=== PATIENT | male | born 1950 ===

== ENCOUNTER → 2024-01-02 14:36 | Outpatient (BNVA) | payer MEDICARE, OTHER, SELFPAY | PROVIDERS: Visit Provider Urology | DX: D09.0 Carcinoma in situ of bladder (principal); Z98.890 Other specified postprocedural states; Z86.03 Personal history of neoplasm of uncertain behavior | CPT/HCPCS: 99203 ==

== ENCOUNTER → 2024-01-09 08:52 | Outpatient (BNVA) | payer MEDICARE, OTHER, SELFPAY | PROVIDERS: Visit Provider Urology | DX: Z46.6 Encounter for fitting and adjustment of urinary device (principal); D09.0 Carcinoma in situ of bladder | CPT/HCPCS: 51720; 81003; J9201 ==

== ENCOUNTER → 2024-01-19 08:35 | Outpatient (BNVA) | payer MEDICARE, OTHER, SELFPAY | PROVIDERS: Visit Provider Urology | DX: D09.0 Carcinoma in situ of bladder (principal) | CPT/HCPCS: 51720; 81003; J9201 ==

== ENCOUNTER → 2024-02-02 08:23 | Outpatient (BNVA) | payer MEDICARE, OTHER, SELFPAY | PROVIDERS: Visit Provider Urology | DX: D09.0 Carcinoma in situ of bladder (principal) | CPT/HCPCS: 51720; 81003; J9201 ==

== ENCOUNTER → 2024-02-08 09:09 | Outpatient (BNVA) | payer MEDICARE, OTHER, SELFPAY | PROVIDERS: Visit Provider Urology | DX: D09.0 Carcinoma in situ of bladder (principal) | CPT/HCPCS: 51720; 81003; J9201 ==

== ENCOUNTER → 2024-02-16 09:03 | Outpatient (BNVA) | payer MEDICARE, OTHER, SELFPAY | PROVIDERS: Visit Provider Urology | DX: D09.0 Carcinoma in situ of bladder (principal) | CPT/HCPCS: 51720; 81003; J9201 ==

== ENCOUNTER → 2024-02-29 12:23 | Outpatient (BNVA) | payer MEDICARE, OTHER, SELFPAY | PROVIDERS: Visit Provider Nurse Practitioner Gerontology | DX: D09.0 Carcinoma in situ of bladder (principal) | CPT/HCPCS: 51720; 81003; J9201 ==

== ENCOUNTER → 2025-01-27 09:56 | Outpatient (BNVA) | payer MEDICARE, OTHER, SELFPAY | PROVIDERS: Visit Provider Nurse Practitioner Gerontology | DX: D09.0 Carcinoma in situ of bladder (principal); Z98.890 Other specified postprocedural states | CPT/HCPCS: 99214 ==

== ENCOUNTER → 2025-02-18 12:58 | Outpatient (BNVA) | payer MEDICARE, OTHER, SELFPAY | PROVIDERS: Visit Provider Nurse Practitioner Gerontology | DX: D09.0 Carcinoma in situ of bladder (principal) | CPT/HCPCS: 99213 ==

== ENCOUNTER → 2025-02-24 12:45 | Outpatient (BNVA) | payer MEDICARE, OTHER, SELFPAY | PROVIDERS: Visit Provider Nurse Practitioner Gerontology | DX: D09.0 Carcinoma in situ of bladder (principal) | CPT/HCPCS: 51720; J9280 ==

== ENCOUNTER → 2025-03-05 11:13 | Outpatient (BNVA) | payer MEDICARE, OTHER, SELFPAY | PROVIDERS: Visit Provider Nurse Practitioner Gerontology | DX: D09.0 Carcinoma in situ of bladder (principal) | CPT/HCPCS: 81002; 51720; J9280 ==

== ENCOUNTER → 2025-03-12 11:01 | Outpatient (BNVA) | payer MEDICARE, OTHER, SELFPAY | PROVIDERS: Visit Provider Nurse Practitioner Gerontology | DX: D09.0 Carcinoma in situ of bladder (principal) | CPT/HCPCS: 81002; 51720; J9280 ==

== ENCOUNTER → 2025-03-19 11:07 | Outpatient (BNVA) | payer MEDICARE, OTHER, SELFPAY | PROVIDERS: Visit Provider Nurse Practitioner Gerontology | DX: D09.0 Carcinoma in situ of bladder (principal) | CPT/HCPCS: 81002; 51720; J9280 ==

== ENCOUNTER → 2025-03-27 12:35 | Outpatient (BNVA) | payer MEDICARE, OTHER, SELFPAY | PROVIDERS: Visit Provider Nurse Practitioner Gerontology | DX: D09.0 Carcinoma in situ of bladder (principal) | CPT/HCPCS: 81002; 51720; J9280 ==

== ENCOUNTER → 2025-04-03 11:55 | Outpatient (BNVA) | payer MEDICARE, OTHER, SELFPAY | PROVIDERS: Visit Provider Nurse Practitioner Gerontology | DX: D09.0 Carcinoma in situ of bladder (principal) | CPT/HCPCS: 81002; 51720; J9280 ==